=== PATIENT | male | born 1960 | race Caucasian/White ===

== ENCOUNTER → 2021-08-26 14:30 | Outpatient (CLI) | payer OTHER, SELFPAY ==
--- NOTE | 2021-08-26 | DI.RAD.S_ITS ---
PROCEDURE: XR HIP W PEL IF DONE [place] MIN 4V INDICATIONS: JOINT PAIN TECHNIQUE: AP pelvis with lateral view(s) of the right and left hip(s). COMPARISON: None. FINDINGS: Bones: No fractures or dislocations. Pelvic ring appears intact. No suspicious bony lesions. Mild bilateral hip osseous hypertrophy. Soft tissues: The visualized bowel gas pattern is normal. No suspicious soft tissue calcifications. IMPRESSION: Mild bilateral hip osteoarthritis. Dictated by: Marisela Chatterjee MD, PhD on 08/26/2021 at 17:05 Approved by: Marisela Chatterjee MD, PhD on 08/26/2021 at 17:05
--- NOTE | 2021-08-26 | DI.RAD.S_ITS ---
PROCEDURE: XR LUMBAR SPINE 2-3V INDICATIONS: JOINT PAIN TECHNIQUE: 3 views of the lumbar spine were acquired. COMPARISON: None. 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 There is normal bony alignment. No vertebral body compression fractures. No suspicious bony lesions. Mild degenerative disc changes noted throughout the lumbar spine. Moderate L3-L4 and L4-L5 facet arthropathy. Mild L2-L3 facet arthropathy. Soft tissues: Overlying bowel gas pattern is normal. No suspicious soft tissue calcifications. IMPRESSION: 1. Multilevel degenerative disc disease. 2. Multilevel facet arthropathy. 3. No fracture. No acute osseous lesion. If symptoms and/or clinical suspicion for pathology persists, evaluation with MRI should be considered for further assessment. 4. 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 Dictated by: Marisela Chatterjee MD, PhD on 08/26/2021 at 17:05 Approved by: Marisela Chatterjee MD, PhD on 08/26/2021 at 17:07
--- NOTE | 2021-08-26 | DI.RAD.S_ITS ---
PROCEDURE: XR CERVICAL SPINE 2V OR 3V INDICATIONS: JOINT PAIN TECHNIQUE: 3 view(s) of the cervical spine were acquired. COMPARISON: None. FINDINGS: Bones: No fractures or dislocations to the T1 level. The lateral masses of C1 appear intact on the odontoid view. No suspicious bony lesions. Moderate to severe C6-C7 degenerative disc disease. Moderate C4-C5 and C7-T1 degenerative disc changes. 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 Mild facet arthropathy noted throughout the cervical spine. Severe right C4-C5 uncovertebral joint hypertrophy. Soft tissues: No prevertebral soft tissue swelling. IMPRESSION: 1. Multilevel degenerative disc disease. 2. Multilevel facet arthropathy. 3. No fracture. No acute osseous lesion. If symptoms and/or clinical suspicion for pathology persists, evaluation with MRI should be considered for further assessment. Dictated by: Marisela Chatterjee MD, PhD on 08/26/2021 at 17:02 Approved by: Marisela Chatterjee MD, PhD on 08/26/2021 at 17:04
[2021-08-26 16:17] LABS: Erythrocyte Sedimentation Rate 2 MM/HR (0-15)
== END ==
PROVIDERS: Referring Provider Family Medicine; Visit Provider Family Medicine
DX: M50.321 Other cervical disc degeneration at C4-C5 level (principal); M47.812 Spondylosis without myelopathy or radiculopathy, cervical region; M51.16 Intervertebral disc disorders with radiculopathy, lumbar region; M47.26 Other spondylosis with radiculopathy, lumbar region; M16.0 Bilateral primary osteoarthritis of hip; G95.9 Disease of spinal cord, unspecified; M25.551 Pain in right hip; M25.552 Pain in left hip
CPT/HCPCS: 72040; 72100; 73522; 85651

== ENCOUNTER → 2024-04-19 11:52 | Outpatient (CLI) | payer OTHER, SELFPAY | PROVIDERS: Referring Provider Chiropractor; Visit Provider Chiropractor | DX: J45.909 Unspecified asthma, uncomplicated (principal); M13.80 Other specified arthritis, unspecified site | CPT/HCPCS: 94060 ==

== ENCOUNTER → 2024-05-08 09:26 | Outpatient (CLI) | payer OTHER, SELFPAY ==
--- NOTE | 2024-05-08 | DI.RAD.S_ITS ---
PROCEDURE: XR CERVICAL SPINE 2V OR 3V INDICATIONS: arthritis TECHNIQUE: 2 view(s) of the cervical spine were acquired. COMPARISON: [facility], CR, XR CERVICAL SPINE 2V OR 3V, 08/26/2021, 14:42. FINDINGS: Bones: Similar fusion of C5-C6. [id number] background degenerative changes and straightening of the normal cervical lordosis. Vertebral body heights are well maintained. No traumatic subluxation. C1 on C2 alignment is maintained on odontoid view Soft tissues: No prevertebral soft tissue swelling. IMPRESSION: [id number] degenerative findings without acute radiographic changes. Similar C5-C6 fusion, possibly congenital. If there is high concern for further derangement, consider MRI evaluation. Dictated by: Jose Ruiz M.D. on 05/08/2024 at 14:20 Approved by: Jose Ruiz M.D. on 05/08/2024 at 14:22
== END ==
PROVIDERS: Referring Provider Chiropractor; Visit Provider Chiropractor
DX: M43.22 Fusion of spine, cervical region (principal); M13.80 Other specified arthritis, unspecified site; J45.909 Unspecified asthma, uncomplicated
CPT/HCPCS: 72040